=== PATIENT | male | born 1980 | race Two or more races ===

== ENCOUNTER 2019-02-23 19:11 | Emergency (ER) | payer SELFPAY ==
[2019-02-23] MEDS ORDERED: Pantoprazole 40 MG Vial IVPUSH ONE (19:14)
[2019-02-23] MEDS ORDERED: MVI, Adult with Vitamin K 10 ML, Thiamine 100 MG, Folic Acid 1 MG in Sodium Chloride 0.... IV ONE ×4 (19:14)
[2019-02-23] MEDS ORDERED: Ondansetron 4 MG/2 ML SDV IVPUSH ONE (19:14)
--- NOTE | 2019-02-23 19:15 | EDM.PDOC ---
ED HPI GENERAL MEDICAL PROBLEM - General Stated Complaint: PT NOT FEELING WELL Time Seen by Provider: 02/23/19 19:15 Source of Information: Reports: Patient - History of Present Illness INITIAL COMMENTS - FREE TEXT/NARRATIVE: HISTORY AND PHYSICAL: History of present illness: [Patient presents via EMS Is been drinking heavily the last week up to a liter of vodka daily along with beer, he states his last drink was 3 days prior to arrival [place] with complaint of vomiting and abdominal pain] Review of systems: As per history of present illness and below otherwise all systems reviewed and negative. Past medical history: As per history of present illness and as reviewed below otherwise noncontributory. Surgical history: As per history of present illness and as reviewed below otherwise noncontributory. Social history: No reported history of drug or alcohol abuse. Family history: As per history of present illness and as reviewed below otherwise noncontributory. Physical exam: HEENT: Atraumatic, normocephalic, pupils reactive, negative for conjunctival pallor or scleral icterus, mucous membranes moist, throat clear, neck supple, nontender, trachea midline. Lungs: Clear to auscultation, breath sounds equal bilaterally, chest nontender. Heart: S1S2, regular, negative for clicks, rubs, or JVD. Abdomen: Soft, nondistended, nontender. Negative for masses or hepatosplenomegaly. Negative for costovertebral tenderness. Pelvis: Stable nontender. Genitourinary: Deferred. Rectal: Deferred. Extremities: Atraumatic, negative for cords or calf pain. Neurovascular unremarkable. Neuro: Awake, alert, oriented. Cranial nerves II through XII unremarkable. Cerebellum unremarkable. Motor and sensory unremarkable throughout. Exam nonfocal. Diagnostics: [CBC CMP troponin lipase UA CPK Lactic blood, blood cultures 2, and screen eKG Chest [address] abdomen pelvis with contrast ] Therapeutics: Banana bag Normal saline Proton X Zofran KCl 20 mEq ] Impression: Renal failure Pancreatitis Elevated troponin Light abnormalities Hypotension Vomiting etoh abuse and dependence ] Definitive disposition and diagnosis as appropriate pending reevaluation and review of above. abdomen Pain Score (Numeric/FACES): 7 - Related Data Allergies Allergy/AdvReac Type Severity Reaction Status Date / Time Penicillins Allergy Rash Verified 02/23/19 19:15 Home Meds: Home Meds . [No Known Home Meds] 02/23/19 [History] ED ROS GENERAL - Review of Systems Review Of Systems: See Below ED EXAM, GENERAL - Physical Exam Exam: See Below Course - Vital Signs Last Recorded V/S: Last Vital Signs Temp 97.4 F 02/23/19 19:13 Pulse 141 H 02/23/19 19:13 Resp 18 02/23/19 19:13 BP 122/74 02/23/19 19:13 Pulse Ox 98 02/23/19 19:13 - Orders/Labs/Meds Orders: Active Orders 24 hr Category Date Time Status EKG Documentation Completion [RC] STAT Care 02/23/19 19:14 Active Chest 1V Frontal [CR] Stat Exams 02/23/19 19:14 Taken COMPREHENSIVE METABOLIC PN,CMP [CHEM] Stat Lab 02/23/19 19:12 Results CREATINE KINASE,CK [CHEM] Stat Lab 02/23/19 19:12 Results CULTURE BLOOD [BC] Stat Lab 02/23/19 19:12 Received CULTURE BLOOD [BC] Stat Lab 02/23/19 20:08 Results LIPASE [CHEM] Stat Lab 02/23/19 19:12 Results TROPONIN I [CHEM] Stat Lab 02/23/19 19:12 Results TYPE AND SCREEN [BBK] Stat Lab 02/23/19 20:08 Received UA RFX GADIEL AND CULT IF INDIC [URIN] Stat Lab 02/23/19 19:14 Ordered Potassium Chloride Riders [KCL 20 MEQ in Water 50 ML] Med 02/23/19 20:28 Active 20 meq Premix Bag 1 bag IV ONETIME Blood Culture x2 Reflex Set [OM.PC] Stat Oth 02/23/19 19:19 Ordered Medication Orders Potassium Chloride 20 meq/ (Premix) 50 mls @ 25 mls/hr IV ONETIME ONE Stop: 02/23/19 22:27 Labs: Laboratory Tests 02/23/19 02/23/19 02/23/19 Range/Units 19:12 19:12 19:12 WBC 32.45 H (4.0-11.0) K/uL RBC 6.15 H (4.50-5.90) M/uL Hgb 18.0 H (13.0-17.0) g/dL Hct 48.5 (38.0-50.0) % MCV 78.9 L (80.0-98.0) fL MCH 29.3 (27.0-32.0) pg MCHC 37.1 H (31.0-37.0) g/dL RDW Std Deviation 35.3 (28.0-62.0) fl RDW Coeff of Kalen 13 (11.0-15.0) % Plt Count 263 (150-400) K/uL MPV 10.30 (7.40-12.00) fL Add Manual Diff YES Neutrophils % (Manual) 71 (48.0-80.0) % Band Neutrophils % 5 % Lymphocytes % (Manual) 17 (16.0-40.0) % Monocytes % (Manual) 6 (0.0-15.0) % Basophils % (Manual) 1 (0.0-1.5) % Nucleated RBC % 0.0 /100WBC Absolute Seg Neuts 23.0 H (1.4-5.7) Band Neutrophils # 1.6 Lymphocytes # (Manual) 5.5 H (0.6-2.4) Monocytes # (Manual) 1.9 H (0.0-0.8) Basophils # (Manual) 0.3 H (0.0-0.1) Nucleated RBCs # 0 K/uL Lactate 9.9 H (0.20-2.00) mmol/L Sodium 124 L (136-148) mmol/L Potassium 2.8 L (3.5-5.1) mmol/L Chloride 70 L (98-107) mmol/L Carbon Dioxide 27.7 (21.0-32.0) mmol/L BUN 61 H (7.0-18.0) mg/dL Creatinine 6.0 H (0.8-1.3) mg/dL Est Cr Clr Drug Dosing TNP Estimated GFR (MDRD) 10.5 ml/min Glucose 225 H (74-106) mg/dL Calcium 8.4 L (8.5-10.1) mg/dL Total Bilirubin 1.7 H (0.2-1.0) mg/dL AST 207 H (15-37) IU/L ALT 144 H (14-63) IU/L Alkaline Phosphatase 133 H (46-116) U/L Troponin I 0.565 H* (0.000-0.056) ng/mL Total Protein 8.7 H (6.4-8.2) g/dL Albumin 4.3 (3.4-5.0) g/dL Globulin 4.4 H (2.6-4.0) g/dL Albumin/Globulin Ratio 1.0 (0.9-1.6) Lipase 420 H (73-393) U/L Meds: Medications Generic Name Dose Route Start Last Admin Trade Name Beata PRN Reason Stop Dose Admin Potassium Chloride 20 meq/ 50 mls @ 25 mls/hr 02/23/19 20:28 Premix IV 02/23/19 22:27 ONETIME ONE Discontinued Medications Generic Name Dose Route Start Last Admin Trade Name Freq PRN Reason Stop Dose Admin Multivitamins/Minerals 10 ml/ 1,011.2 mls @ 999 mls/hr 02/23/19 19:14 19:59 Thiamine HCl 100 mg/ Folic IV 02/23/19 20:14 999 mls/hr Acid 1 mg/ Sodium Chloride ONETIME ONE Administration Sodium Chloride 1,000 mls @ 999 mls/hr 02/23/19 19:16 02/23/19 19:21 Normal Saline IV 02/23/19 20:16 999 mls/hr STAT ONE Administration Sodium Chloride Confirm 02/23/19 19:17 02/23/19 20:05 Normal Saline Administered 02/23/19 19:18 20 mls/hr Dose Administration 20 mls @ as directed .ROUTE .STK-MED ONE Ondansetron HCl 8 mg 02/23/19 19:14 02/23/19 19:19 Zofran IVPUSH 02/23/19 19:15 8 mg ONETIME ONE Administration Pantoprazole Sodium 80 mg 02/23/19 19:14 02/23/19 19:19 Protonix Iv IVPUSH 02/23/19 19:15 80 mg .BOLUS ONE Administration Departure - Departure Time of Disposition: 20:51 Disposition: DC/Tfer to Acute Hospital 02 Condition: Poor Clinical Impression: Acute renal failure, Pancreatitis, Electrolyte abnormality - Discharge Information - My Orders Last 24 Hours: My Active Orders 02/23/19 19:12 COMPREHENSIVE METABOLIC PN,CMP [CHEM] Stat CREATINE KINASE,CK [CHEM] Stat CULTURE BLOOD [BC] Stat LIPASE [CHEM] Stat TROPONIN I [CHEM] Stat 02/23/19 19:14 EKG Documentation Completion [RC] STAT Chest 1V Frontal [CR] Stat UA RFX GADIEL AND CULT IF INDIC [URIN] Stat 02/23/19 19:19 Blood Culture x2 Reflex Set [OM.PC] Stat 02/23/19 20:08 CULTURE BLOOD [BC] Stat TYPE AND SCREEN [BBK] Stat 02/23/19 20:28 Potassium Chloride Riders [KCL 20 MEQ in Water 50 ML] 20 meq Premix Bag 1 bag IV ONETIME - Assessment/Plan Last 24 Hours: My Active Orders 02/23/19 19:12 COMPREHENSIVE METABOLIC PN,CMP [CHEM] Stat CREATINE KINASE,CK [CHEM] Stat CULTURE BLOOD [BC] Stat LIPASE [CHEM] Stat TROPONIN I [CHEM] Stat 02/23/19 19:14 EKG Documentation Completion [RC] STAT Chest 1V Frontal [CR] Stat UA RFX GADIEL AND CULT IF INDIC [URIN] Stat 02/23/19 19:19 Blood Culture x2 Reflex Set [OM.PC] Stat 02/23/19 20:08 CULTURE BLOOD [BC] Stat TYPE AND SCREEN [BBK] Stat 02/23/19 20:28 Potassium Chloride Riders [KCL 20 MEQ in Water 50 ML] 20 meq Premix Bag 1 bag IV ONETIME
[2019-02-23] MEDS ORDERED: Sodium Chloride 0.9% 1,000 ML IV ONE (19:16)
[2019-02-23] MEDS ORDERED: Sodium Chloride 0.9% 20 ML ONE (19:17)
[2019-02-23 20:11] LABS: CHLORIDE,CL 70 mmol/L (98-107); SODIUM,NA 124 mmol/L (136-148)
[2019-02-23] MEDS ORDERED: Potassium Chloride Riders 20 MEQ in Premix Bag 1 BAG IV ONE (20:28)
[2019-02-23] MEDS ORDERED: Levofloxacin/Dextrose 5%-Water 750 MG in Premix Bag 1 BAG IV ONE (20:52)
[2019-02-23] MEDS ORDERED: Sodium Chloride 0.9% 1,000 ML IV SCH (21:00)
[2019-02-23] MEDS ORDERED: LORazepam 2 MG/ML SDV IVPUSH ONE (21:33)
[2019-02-23] MEDS ORDERED: LORazepam 2 MG/ML SDV ONE (21:34)
--- NOTE | 2019-02-23 21:43 | CR ---
HISTORY: Pain and vomiting COMPARISON: None available FINDINGS: A portable erect AP view of the chest was obtained at 2036 hours. There is moderate eventration of the right hemidiaphragm. The lungs are otherwise clear. No focal or diffuse infiltrates are present. The heart is normal in size. The mediastinum is normal in appearance. The osseous structures are normal in appearance for the patient`s age. IMPRESSION: No active disease seen in the chest. Dictated by Dandre Grant MD @ Feb 23 2019 9:40PM Signed by Dr. Dandre Grant @ Feb 23 2019 9:42PM
== END 2019-02-23 21:44 ==
LOC: MW.ED 19:11
DX: R65.11 Systemic inflammatory response syndrome (SIRS) of non-infectious origin with acute organ dysfunction (principal); N17.9 Acute kidney failure, unspecified; K85.90 Acute pancreatitis without necrosis or infection, unspecified; I95.9 Hypotension, unspecified; E87.8 Other disorders of electrolyte and fluid balance, not elsewhere classified; F10.20 Alcohol dependence, uncomplicated; R79.89 Other specified abnormal findings of blood chemistry; Z88.0 Allergy status to penicillin
CPT/HCPCS: 36415; 71045; 80053; 82550; 83605; 83690; 84484; 85025; 87040; 93005; 96361; 96365; 96367; 96375; 99285; A4217; C9113; G0480; J1956; J2060; J2405; J3411; J3480; J7040